=== PATIENT | male | born 1960 | race American Indian/Alaskan Native ===

== ENCOUNTER 2017-12-05 11:47 | Emergency (ER) | payer SELFPAY ==
[~2017-12-05] VITALS: Ht 162.6 cm; Wt 55.0 kg
[2017-12-05] MEDS ORDERED: SODIUM CHLORIDE 0.9% 1,000 ML IV ONE (12:06)
[2017-12-05] MEDS ORDERED: MORPHINE SULFATE 4 MG/ML CPJ (NOT FOR IM USE) IV STA (12:06)
[2017-12-05] MEDS ORDERED: ONDANSETRON HCL 4MG/2ML VIAL IV STA (12:06)
[2017-12-05] MEDS ORDERED: FAMOTIDINE 20MG/2ML VIAL IV STA (12:06)
[2017-12-05 12:47] LABS: BASOPHILS % 0.6 % (0.0-2.0); EOSINOPHILS % 0.2 % (0.0-5.0); HEMATOCRIT. 41.5 % (42.0-52.0); HEMOGLOBIN. 13.6 g/dL (14.0-18.0); LYMPHOCYTES % 8.9 % (20.0-50.0); MEAN CORPUSCULAR HEMOGLOBIN 29.4 pg (28.0-32.0); MEAN CORPUSCULAR VOLUME 89.7 fL (80.0-94.0); MEAN PLATELET VOLUME 7.2 fl (7.4-10.4); MONOCYTES % 3.7 % (2.0-8.0); NEUTROPHILS % 86.6 % (40.0-76.0); PLATELET 278 x1000/uL (130-400); RED BLOOD CELL COUNT 4.63 mill/uL (4.7-6.1); RED CELL DISTRIBUTION WIDTH 13.3 % (11.6-14.6)
[2017-12-05 12:50] LABS: PROTHROMBIN TIME 10.5 sec (9.4-11.6)
[2017-12-05 12:56] LABS: CHLORIDE 107 mEq/L (98-107); CREATINE KINASE 488 IU/L (39-308); ETHANOL BLOOD < 10 mg/dL
[2017-12-05 12:58] LABS: TROPONIN I < 0.02 ng/mL (0.00-0.04)
[2017-12-05 13:41] LABS: CLARITY URINE CLEAR (CLEAR); COLOR URINE YELLOW (YELLOW); KETONES URINE 3+ (NEGATIVE); LEUKOCYTE ESTERASE URINE NEGATIVE (NEGATIVE); NITRITE URINE NEGATIVE (NEGATIVE); OCCULT BLOOD URINE 1+ (NEGATIVE); PH URINE 6.5 (4.5-8.0); PROTEIN URINE NEGATIVE (NEGATIVE); SPECIFIC GRAVITY URINE 1.023 (1.005-1.030); UROBILINOGEN URINE 0.2 E.U./dL (0.2-1.0)
[2017-12-05 14:01] LABS: *AMPHETAMINES SCREEN URINE NEGATIVE (NEGATIVE); *BARBITURATES SCREEN URINE NEGATIVE (NEGATIVE); *BENZODIAZEPINES SCREEN URINE NEGATIVE (NEGATIVE); *COCAINE SCREEN URINE NEGATIVE (NEGATIVE); CANNABINOID URINE SCREEN PRESUMTIVE POSITIVE (NEGATIVE); METHADONE URINE SCREEN NEGATIVE (NEGATIVE); OPIATES URINE SCREEN PRESUMTIVE POSITIVE (NEGATIVE); PHENCYCLIDINE URINE SCREEN NEGATIVE (NEGATIVE)
[2017-12-05] MEDS ORDERED: KETOROLAC 30MG/ML VIAL IV ONE (15:00)
[2017-12-05] MEDS ORDERED: METOCLOPRAMIDE HCL 10MG/2ML VIAL IV ONE (16:30)
[2017-12-05] MEDS ORDERED: PROCHLORPERAZINE 10MG/2ML VIAL IV PRN (16:45)
[2017-12-05 17:15] VITALS: BP 178/95
== END 2017-12-05 17:24 | disposition home or self-care (01) ==
LOC: ER 11:47
DX: K29.70 Gastritis, unspecified, without bleeding (principal); N20.0 Calculus of kidney; R73.9 Hyperglycemia, unspecified
CPT/HCPCS: 36415; 71045; 74176; 80053; 80305; 81003; 82550; 83690; 83880; 84484; 85025; 85610; 86850; 86900; 86901; 93005; 96361; 96374; 96375; 99285; G0482; J1885; J2270; J2405; J2765; J3490; J7030; Z7610

== ENCOUNTER 2025-04-04 23:05 | Emergency (ER) | payer MEDICAID ==
[~2025-04-04] VITALS: Ht 167.6 cm; Wt 73.0 kg
[2025-04-04 23:42] VITALS: O2SAT 98
[2025-04-05 00:25] LABS: HEMATOCRIT. 42.2 % (42.0-52.0); HEMOGLOBIN. 14.1 g/dL (14.0-18.0); MEAN CORPUSCULAR HEMOGLOBIN 30.1 pg (28.0-32.0); MEAN CORPUSCULAR HGB CONC 33.5 g/dL (31.0-37.0); MEAN CORPUSCULAR VOLUME 89.9 fL (80.0-94.0); MEAN PLATELET VOLUME 6.8 fl (7.4-10.4); PLATELET 283 x1000/uL (130-400); RED BLOOD CELL COUNT 4.69 mill/uL (4.7-6.1); RED CELL DISTRIBUTION WIDTH 12.9 % (11.6-14.6); WHITE BLOOD COUNT 15.5 x1000/uL (4.5-11.0)
[2025-04-05 00:26] LABS: CHLORIDE 103 mEq/L (98-107); POTASSIUM 3.1 mEq/L (3.5-5.1); SODIUM 139 mEq/L (136-145)
[2025-04-05 00:27] LABS: CALCIUM 10.2 mg/dL (8.7-10.4); CARBON DIOXIDE 25 mEq/L (21-32)
[2025-04-05 00:28] LABS: PROTHROMBIN TIME 10.5 sec (9.6-11.0)
[2025-04-05 00:29] LABS: DIFFERENTIAL COMMENT 1
[2025-04-05 00:32] LABS: CREATININE 0.9 mg/dL (0.6-1.3); GLUCOSE 137 mg/dL (70-105); UREA NITROGEN BLOOD 18 mg/dL (9-23)
[2025-04-05 00:33] LABS: ETHANOL BLOOD < 10 mg/dL (<10); TROPONIN I HIGH SENSITIVITY 19 ng/L (3.0-53)
[2025-04-05 00:34] LABS: ALANINE AMINOTRANSFERASE 24 IU/L (10-49); ALBUMIN 5.1 g/dL (3.2-4.8); ASPARTATE AMINOTRANSFERASE 35 IU/L (<34); BILIRUBIN DIRECT 0.2 mg/dL (<=3.0); BILIRUBIN TOTAL 0.8 mg/dL (0.1-1.0)
[2025-04-05 00:35] LABS: PROTEIN TOTAL 7.7 g/dL (6.0-8.3)
[2025-04-05] MEDS: MAGNESIUM/ALUMINUM HYDROXIDE/SIMETHICONE 30ML UDC PO STA (00:49)
[2025-04-05] MEDS: ONDANSETRON HCL 4MG/2ML INJ IV STA (00:51)
[2025-04-05] MEDS: MORPHINE SULFATE 4 MG/ML INJ (FOR IV/IM USE) IV STA (00:53)
[2025-04-05] MEDS: POTASSIUM CHLORIDE 20MEQ/PACKET PO NR (03:54)
[2025-04-05] MEDS ORDERED: PROT40 MT (04:13)
[2025-04-05] MEDS ORDERED: ONDA4TAB50 MT (04:13)
[2025-04-05] MEDS: ONDANSETRON HCL 4MG/2ML INJ IV ONE (04:23)
[2025-04-05 04:28] VITALS: BP 174/93; PULSE 74; RESP 12; TEMP 36.7; O2SAT 96
[2025-04-05 08:07] LABS: PLATELET ESTIMATE NORMAL
== END 2025-04-05 04:38 | disposition home or self-care (01) ==
LOC: ER 23:05
DX: R10.84 Generalized abdominal pain (principal); R11.2 Nausea with vomiting, unspecified; K74.60 Unspecified cirrhosis of liver; Z79.899 Other long term (current) drug therapy; Z87.442 Personal history of urinary calculi
CPT/HCPCS: 36415; 71045; 93005; 99285; 80076; 80048; 80320; 83690; 85025; 85610; 86850; 86900; 86901; 84484; 74176; 96374; 96375; 96376; J2405; J2270; Z7610; G0480